=== PATIENT | male | born 1970 | race Caucasian/White ===

== ENCOUNTER 2017-08-05 07:12 | Emergency (ER) | payer MEDICAID, OTHER ==
[~2017-08-05] VITALS: Ht 177.8 cm; Wt 92.0 kg
[2017-08-05] MEDS ORDERED: CEPH500C5 PO (07:46)
[2017-08-05] MEDS ORDERED: SULF1TAB49 PO (07:46)
[2017-08-05 08:00] VITALS: BP 136/65
== END 2017-08-05 08:01 | disposition home or self-care (01) ==
LOC: ER 07:13
DX: L03.115 Cellulitis of right lower limb (principal); E11.9 Type 2 diabetes mellitus without complications; I10 Essential (primary) hypertension; E78.00 Pure hypercholesterolemia, unspecified
CPT/HCPCS: 99284